=== PATIENT | male | born 2000 | race African-American/Black ===

== ENCOUNTER 2024-06-12 13:52 | Emergency (ER) | payer SELFPAY ==
[2024-06-12 14:04] VITALS: BP 133/82; PULSE 92; RESP 14; TEMP 36.8; O2SAT 97
--- NOTE | 2024-06-12 14:46 | ED_ITS ---
HPI - URI/Sore Throat General Chief Complaint: Upper Respiratory Infection Stated Complaint: runny nose Time Seen by Provider: 06/12/24 14:46 History of Present Illness HPI Narrative: 24 y/o male presented for c/o nasal congestion, sore throat, hoarse voice. Onset 4 days. Denies sob, wheezing, n/v/d/f/c. Not taking anything for symptoms. Related Data Home Medications ?Medication ?Instructions ?Recorded ?Confirmed ?Last Taken ?Type buspirone 10 mg tablet mg 06/12/24 Unknown History lurasidone 60 mg tablet mg 06/12/24 Unknown History sertraline 100 mg tablet mg 06/12/24 Unknown History Allergies Allergy/AdvReac Type Severity Reaction Status Date / Time No Known Allergies Allergy Verified 06/12/24 14:21 Review of Systems Review of Systems: CONSTITUTIONAL: Denies body aches, fever, chills, or sweats. EYES: Denies visual changes, redness, or discharge. ENT: reports rhinorrhea, congestion, sore throat CARDIOVASCULAR: Denies chest pain, palpitations, or edema. RESPIRATORY: Denies dyspnea. GASTROINTESTINAL: Denies abdominal pain, nausea, vomiting, or diarrhea. SKIN: Denies rash MUSCULOSKELETAL: Denies back pain, joint pain, or myalgia. NEUROLOGIC: Denies headache Exam Narrative: GENERAL: well-appearing, no acute distress. EYES: conjunctivae clear ENT: Mucous membranes moist. TM pearly baker with normal light reflex bilaterally; no tragal tenderness. Oropharynx mildly erythematous without lesions. Tonsils not enlarged and without exudate. No drooling, no hoarseness, no trismus, uvula midline. No tripod positioning, hot potato voice, or soft palate swelling. NECK: Supple. No lymphadenopathy CHEST: Clear to auscultation, breath sounds equal. No respiratory distress, speaks in full sentences. HEART: Regular rate and rhythm. No murmur heard. SKIN: Warm, dry, no rash. NEURO: Alert and oriented x3. Course Course Emergency Course: Patient is aware of diagnosis, understands and agrees to treatment plan. Anticipatory guidance given. Patient agrees to follow-up as directed and is aware of reasons to seek care at the emergency department. Portions of this record may have been created with voice recognition software Level of Care: Express Care Visit Vital Signs Vital signs: Vital Signs Temperature 98.2 F 06/12/24 14:04 Pulse Rate 92 06/12/24 14:04 Respiratory Rate 14 06/12/24 14:04 Blood Pressure 133/82 06/12/24 14:04 Pulse Oximetry 97 06/12/24 14:04 Oxygen Delivery Room Air 06/12/24 14:04 Temperature 98.2 F 06/12/24 14:04 Pulse Rate 92 06/12/24 14:04 Respiratory Rate 14 06/12/24 14:04 Blood Pressure 133/82 06/12/24 14:04 Pulse Oximetry 97 06/12/24 14:04 Oxygen Delivery Room Air 06/12/24 14:04 MDM - URI/Sore Throat MDM Narrative Medical decision making narrative: neg strep result reviewed with pt. Advise supportive treatments. Patient is appropriate for outpatient treatment and follow-up. Differential Diagnosis Differential diagnosis: Likely upper respiratory infection, viral infection and pharyngitis Discharge Plan Discharge Clinical Impression: Upper respiratory infection Patient Disposition: Home, Self-Care Condition: Stable Instructions: Antibiotic Form, Upper Respiratory Infection (ED) Additional Instructions: Rapid strep swab was negative today You will be notified in a few days if the culture comes back positive for strep, and appropriate antibiotics will be called in at that time. if symptoms are due to a viral illness, it is not treated with antibiotics. Viral symptoms can be present for up to 10-14 days. Recommendations: Flonase spray and Zyrtec for runny nose Cough syrup may cause drowsiness; avoid driving or take it at night time. Tylenol every 8 hours as needed for pain/fever Soft foods, cool liquids, warm tea. Gargle with warm saltwater twice a day. Chloraseptic spray and throat lozenges. Rest and stay hydrated. --Follow up with your PCP --Go to the ER immediately if you cannot swallow your saliva, trouble breathing/wheezing, throat swelling, pain is persistent and severe Patient Language: Bulgarian Prescriptions: No Action sertraline 100 mg tablet buspirone 10 mg tablet lurasidone 60 mg tablet Follow-up/Referrals: UNKNOWN,DOCTOR [Primary Care Provider] - Stand Alone Forms: Work/School Release IP Time of Disposition: 15:09
[2024-06-12 15:09] LABS: EDSTREPNEGPOS1 Negative (Negative)
--- OUTSIDE RECORDS SUMMARY | 2024-06-12 15:14 | XMS_ITS | Clinical Summary ---
Author Organization [facility] [address] Address [address] [place] [address] Phone Care Team Providers Care Linux Architect Name Role Phone Daniel Woodward MD Primary Care Provider [phone] Allergies Active Allergy Reactions Criticality Noted Date Comments Mold Unknown 06/08/2020 Medications Latuda 20 mg tablet 20 mg daily 05/07/2019 Active sertraline (ZOLOFT) 100 mg tablet Take 200 mg by mouth daily 05/14/2019 Active Active Problems Problem Noted Date Diagnosed Date Upper respiratory tract infection 12/08/2022 Assessment & Plan (12/08/2022 11:52 AM CDT): Rhinorrhea and sore throat x 2 days. Denies fever. Covid/flu/strep negative in- office today. No acute findings on exam today. Symptoms consistent with viral URI. Recommend symptomatic treatment at this time. Testicular mass 06/08/2020 Overview (06/08/2020): Added automatically from request for surgery [id number] Enlarged testicle 06/04/2020 Assessment & Plan (06/04/2020 11:09 AM CDT): Patient noticed enlarged testicle 4 days ago minimal discomfort. Patient is father advised that he will get an ultrasound of his testicles. once results returned I will refer to urology. Bilateral impacted cerumen 02/20/2020 Assessment & Plan (10/23/2020 7:14 PM CDT): Recurrence bilateral cerumen impaction successful removed today. Patient has used [id number] products this is not sufficient to clear to ear wax. Assessment & Plan (02/20/2020 2:22 PM BB SHOT PACKER): Ear wax removed both ears hearing improved immediately. Right acute serous otitis media 02/20/2020 Assessment & Plan (02/20/2020 2:22 PM BB SHOT PACKER): Cerumen impaction removed right ear red complained appearance pain consistent with otitis media patient started on Augmentin 875 twice a day 7 days. Anticipate full recovery no further treatment. Preventative health care 05/25/2019 Assessment & Plan (05/25/2019 5:40 PM CDT): 19-year-old gentleman here for preventive health exam is a new patient to me. His previous under care of Dr. 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 Patient has a diagnosis of attention deficit disorder he is under care of Psychiatry.. He takes the medication Latuda 20 mg daily and Zoloft/sertraline 100 mg 1/2 tablets daily. 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 Risk assessment reviewed health maintenance reviewed no new recommendations at this time who vaccine was not recommended by me on May 17, 2019. PHQ-9 score is taking care of through his psychiatrist. Medical examinations/reports status 06/05/2015 Overview (06/17/2016): Medical examinations/reports status Attention deficit disorder (ADD) without hyperac tivity 06/05/2015 Overview (06/17/2016): ADD Resolved Problems Problem Noted Date Diagnosed Date Resolved Date Other acute sinusitis 12/28/20162019 Otitis media 04/07/2016 05/25/2019 Overview (06/17/2016): Otitis media Acute streptococcal pharyngitis 04/07/2016 05/25/2019 Overview (06/17/2016): Streptococcal pharyngitis Bronchospasm 04/07/2016 05/25/2019 Overview (06/17/2016): Bronchospasm Infectious mononucleosis 06/05/2015 Overview (06/17/2016): Mononucleosis Immunizations Immunization Administration Dates Next Due DTaP 10/02/2003,12/07/2000,01/03/2000 DTaP / HiB / IPV 1999,1999 HPV, Quadrivalent 10/15/2013,05/10/2013,12/25/19 13 Hep B, Adolescent or Pediatric 10/18/2001,1999,01/03/2000 Hib (PRP-OMP) 10/18/2001,01/03/2000 IPV 10/02/2003,12/07/2000 Influenza, Quadrivalent, Spl it, Intramuscular 12/28/2016 Influenza, Quadrivalent, Spl it, Preservative Free, Intramuscular 12/23/2019 Influenza, Split 12/24/2012 Influenza, Trivalent, IM (MDV) 02/28/2014,2011 MMR 10/02/2003,12/07/2000 Meningococcal MCV4P (Menactra) 07/05/2010 Tdap 07/05/2010 Varicella 10/15/2013,12/07/2000 Surgical History Surgery Date Site/Laterality Comments ORAL SURGERY Medical History Medical History Date Comments Hx Other Medical 1999 8-8 [facility]; Comments: [facility] 06/05/2015 - Hx Other Medical 1999 [facility]; Comments: [facility] 06/05/2015 - Anxiety Depression Asperger's syndrome OCD (obsessive compulsive disorder) Family History Medical History Relation Name Comments Other Other 1 Family history of Asthma (Mother); Other Other 2 Family history of Allergy: Mold (Father); Other Other 3 Family history of Allergy: Chocolate (Father); Other Other 4 Family history of Allergy: Metal ; Psoriasis Other 5 Family history of Psoriasis; Other Other 6 Family history of Allergy: Milk; Hypertension Other 7 Family history of Hypertension; Other Other 8 Family history of ADHD; Relation Name Status Comments Other 1 Other 2 Other 3 Other 4 Other 5 Other 6 Other 7 Other 8 Social History Tobacco Use Types Packs/Day Years Used Date Smoking Tobacco: Never Alcohol Use Standard Drinks/Week Comments Never 0 (1 standard drink = 0.6 oz pur e alcohol) AUDIT-C Answer Date Recorded Q1: How often do you have a drink containing alc ohol? Never 06/08/2020 Average Number of Drinks Not on file 021 Frequency of Binge Drinking Not on file 05/12 Sex and Gender Information Value Date Recorded Sex Assigned at Not on file Legal Sex Male 9:45 AM BB SHOT PACKER Gender Identity Not on file Sexual Orientation Not on file Obstetrics History Last Filed Vital Signs Vital Sign Reading Time Taken Comments Blood Pressure 130/86 12/08/2022 11:09 AM CDT Pulse 108 12/08/2022 11:09 AM CDT Temperature 36.9 C (98.4 F) 12/08/2022 11:09 AM CDT Respiratory Rate 16 12/08/2022 11:09 AM CDT Oxygen Saturation 94% 12/08/2022 11:09 AM CDT Inhaled Oxygen Concentration - - Weight 77.1 kg (170 lb) 12/08/2022 11:09 AM CDT Height 175.3 cm (5' 9 ) 10/23/2020 11:10 AM CDT Body Mass Index 25.1 10/23/2020 11:10 AM CDT Plan of Treatment Health Maintenance Due Date Last Done Comments Depression Screening 1999 Hepatitis C Screening 1999 Regular Well Visit/Exam 18-64 05/16/2020 05/17/2019 DTaP/Tdap/Td Vaccine (7 - Td or Tdap) 07/05/2020 07/05/2010, 10/02/2003, 12/07/2000, Additional history exists Covid-19 Vaccine ( season) 2023 01/30/2023, 01/24/2022, 03/09/2021, Additional history exists Hepatitis B Screening Completed 10/18/2001 , 01/26/2000, 01/03/2000 HPV Vaccines Completed 10/15/2013, 04/14, 12/24/2012 Varicella Vaccines Completed 10/15/2013, 12/07/2000 Influenza Vaccine Completed 11/11/2023, , 01/24/2022, Additional history exists Pneumococcal vaccine <65 Aged Out No longer eligible based on patient's age to complete this topic Insurance [facility] Care Teams Linux Architect Relationship Specialty Start Date End Date Daniel Woodward MD PCP - General Internal Medicine 05/17/19
--- OUTSIDE RECORDS SUMMARY | 2024-06-12 15:14 | XMS_ITS ---
Author Organization [facility] [employer] Address [address] [place] [address] Care Team Providers Care General Passenger Agent Name Role Phone Daniel Woodward MD Primary Care Provider Lucita Sandy Unavailable [phone] Allergies Allergen (clinical drug ingredient) Drug/Non Drug Allergy documented on EMR Reaction Allergy Type Onset Date Status Mold Unknown Allergy 07/03/2023 Active REASON FOR VISIT Follow Up, stated he has not been doing too well, but after his visit today he is going to go home and play with his dog. Medications Medication SIG (Take, Route, Fr equency, Duration) Notes Start Date End Date Status busPIRone HCl 10 MG 1 tablet Oral Twice a day for 90 days Active Sertraline HCl 100 MG TAKE 2 TABLETS ORA L ONCE A DAY Orally Once a day for 90 days Ac tive Lurasidone HCl 60 MG 1 tablet in the siena jameson with food Oral Once a day for 90 days Active Social History Sex Assigned At : Social History Observation Description Sex Assigned At Male Section Notes: Family struggling financiall y at this time. Father is currently unemployed. Mother is working department mgr. 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 Z79.899 Assessments Encounter Date Diagnosis (ICD Code) Assessment Notes Treatment Notes Treatment Clinical Notes Section Notes 04/18/2024 Major depressive disorder, recurrent, moderate (ICD-10 - F33.1) Depression- Latuda 60 mg with evening meal - eat 350 calories with rx Sertraline 100 mg daily continue therapy plan to move [place] next year Anxiety- Buspar 10 mg twice a day Asperger's- therapy OCD Sertraline 100 mg daily http_s://psychTurningArt.com/depression /aut-rksnigwbr-xkc xkjfs-zh-njzxhdssa n#treatments http__s://www.nimh .nih.gov/health/to pics/mental-health -medications http__s://www.scotty .org/About-Mental- Illness/Treatments /Eeykfx-Eulfuy-Hme ications educated on all medications, benefits, side effects and risk, and educated on depression, anxiety, and ADHD, mood d/o and educated on compliance of medications, metabolic and movement d/o education appointment's, continue therapy discussion with patient about course of treatment and patient instructions. education on serotonin syndrome Discussed and educated pt regarding benzodiazepines are generally not intended for prolonged use and that use can cause tolerance, dependence, depression, and associated memory issues including dementias (this list is not exhaustive). Benzodiazepine use is generally not recommended concurrently with pain medications and/or other controlled substances educated on all medications, benefits, side effects and risk, and educated on depression, anxiety, and ADHD, mood d/o and educated on compliance of medications, metabolic and movement d/o education appointment is, continue therapy discussion with patient about course of treatment and patient instructions. education on serotonin syndrome SSRI/SNRI side effects discussed including but not limited to, gastric upset, nausea, vomiting, diarrhea and/or constipation, weight changes, sexual side effects including loss of libido, increased suicidal thoughts/behaviors in children and young adults, and serotonin syndrome. Patient educated on all medications including potential benefits, side effects, risks. Educated on proper dosing schedule and importance of compliance Second generation antipsychotics (SGAs) have metabolic syndrome issues with weight gain, increase in prolactin, increased waist circumference, increased lipids, and increased glucose. Thus routine monitoring of weight, metabolic labs, etc. is indicated. A general rank ordering of antipsychotics that have the greatest to the least risk of metabolic effects is olanzapine, quetiapine, risperidone, ziprasidone, and aripiprazole. However, weight gain can occur with all of these drugs and considerable variability exists among patients receiving the same drug regarding the risk of metabolic effects. Anti-psychotic agents not only increase the risk of metabolic disorder, they also increase the risk of CVA, akathisia, and movement disorders including EPS or tardive dyskinesia (more common with first generation antipsychotics) and more. Medication Management and Follow-Up - Plan: - Schedule follow-up appointments every 1-3 months to monitor the patient's response to the medication regimen. - Reinforce the importance of avoiding recreational drug use due to potential neurotoxicity and interactions with prescribed medications. 04/18/2024 Generalized anxiety disorder (ICD-10 - F41.1) Depression- Latuda 60 mg with evening meal - eat 350 calories with rx Sertraline 100 mg daily continue therapy plan to move [place] next year Anxiety- Buspar 10 mg twice a day Asperger's- therapy OCD Sertraline 100 mg daily http_s://psychcent CloudPhysics.com/depression /gma-vulqbsggm-osd jwsfp-pa-sjlzcomey n#treatments http__s://www.nimh .nih.gov/health/to pics/mental-health -medications http__s://www.scotty .org/About-Mental- Illness/Treatments /Ggbbxu-Znzcat-Gxi ications educated on all medications, benefits, side effects and risk, and educated on depression, anxiety, and ADHD, mood d/o and educated on compliance of medications, metabolic and movement d/o education appointment's, continue therapy discussion with patient about course of treatment and patient instructions. education on serotonin syndrome Discussed and educated pt regarding benzodiazepines are generally not intended for prolonged use and that use can cause tolerance, dependence, depression, and associated memory issues including dementias (this list is not exhaustive). Benzodiazepine use is generally not recommended concurrently with pain medications and/or other controlled substances educated on all medications, benefits, side effects and risk, and educated on depression, anxiety, and ADHD, mood d/o and educated on compliance of medications, metabolic and movement d/o education appointment is, continue therapy discussion with patient about course of treatment and patient instructions. education on serotonin syndrome SSRI/SNRI side effects discussed including but not limited to, gastric upset, nausea, vomiting, diarrhea and/or constipation, weight changes, sexual side effects including loss of libido, increased suicidal thoughts/behaviors in children and young adults, and serotonin syndrome. Patient educated on all medications including potential benefits, side effects, risks. Educated on proper dosing schedule and importance of compliance Second generation antipsychotics (SGAs) have metabolic syndrome issues with weight gain, increase in prolactin, increased waist circumference, increased lipids, and increased glucose. Thus routine monitoring of weight, metabolic labs, etc. is indicated. A general rank ordering of antipsychotics that have the greatest to the least risk of metabolic effects is olanzapine, quetiapine, risperidone, ziprasidone, and aripiprazole. However, weight gain can occur with all of these drugs and considerable variability exists among patients receiving the same drug regarding the risk of metabolic effects. Anti-psychotic agents not only increase the risk of metabolic disorder, they also increase the risk of CVA, akathisia, and movement disorders including EPS or tardive dyskinesia (more common with first generation antipsychotics) and more. Medication Management and Follow-Up - Plan: - Schedule follow-up appointments every 1-3 months to monitor the patient's response to the medication regimen. - Reinforce the importance of avoiding recreational drug use due to potential neurotoxicity and interactions with prescribed medications. 04/18/2024 Asperger's syndrome (ICD-10 - F84.5) Depression- Latuda 60 mg with evening meal - eat 350 calories with rx Sertraline 100 mg daily continue therapy plan to move [place] next year Anxiety- Buspar 10 mg twice a day Asperger's- therapy OCD Sertraline 100 mg daily http_s://psychcent CloudPhysics.com/depression /cme-csxxrqbml-gfk uskna-cd-avbftrasp n#treatments http__s://www.nim .nih.gov/health/to pics/mental-health -medications http__s://www.scotty .org/About-Mental- Illness/Treatments /Xneymi-Boqcjb-Ywm ications educated on all medications, benefits, side effects and risk, and educated on depression, anxiety, and ADHD, mood d/o and educated on compliance of medications, metabolic and movement d/o education appointment's, continue therapy discussion with patient about course of treatment and patient instructions. education on serotonin syndrome Discussed and educated pt regarding benzodiazepines are generally not intended for prolonged use and that use can cause tolerance, dependence, depression, and associated memory issues including dementias (this list is not exhaustive). Benzodiazepine use is generally not recommended concurrently with pain medications and/or other controlled substances educated on all medications, benefits, side effects and risk, and educated on depression, anxiety, and ADHD, mood d/o and educated on compliance of medications, metabolic and movement d/o education appointment is, continue therapy discussion with patient about course of treatment and patient instructions. education on serotonin syndrome SSRI/SNRI side effects discussed including but not limited to, gastric upset, nausea, vomiting, diarrhea and/or constipation, weight changes, sexual side effects including loss of libido, increased suicidal thoughts/behaviors in children and young adults, and serotonin syndrome. Patient educated on all medications including potential benefits, side effects, risks. Educated on proper dosing schedule and importance of compliance Second generation antipsychotics (SGAs) have metabolic syndrome issues with weight gain, increase in prolactin, increased waist circumference, increased lipids, and increased glucose. Thus routine monitoring of weight, metabolic labs, etc. is indicated. A general rank ordering of antipsychotics that have the greatest to the least risk of metabolic effects is olanzapine, quetiapine, risperidone, ziprasidone, and aripiprazole. However, weight gain can occur with all of these drugs and considerable variability exists among patients receiving the same drug regarding the risk of metabolic effects. Anti-psychotic agents not only increase the risk of metabolic disorder, they also increase the risk of CVA, akathisia, and movement disorders including EPS or tardive dyskinesia (more common with first generation antipsychotics) and more. Medication Management and Follow-Up - Plan: - Schedule follow-up appointments every 1-3 months to monitor the patient's response to the medication regimen. - Reinforce the importance of avoiding recreational drug use due to potential neurotoxicity and interactions with prescribed medications. 04/18/2024 Other obsessive-compu lsive disorder (ICD-10 - F42.8) Depression- Latuda 60 mg with evening meal - eat 350 calories with rx Sertraline 100 mg daily continue therapy plan to move [place] next year Anxiety- Buspar 10 mg twice a day Asperger's- therapy OCD Sertraline 100 mg daily http_s://[employer] Vit[employer].com/depression /jgv-awygzzsqy-ryw iaqkc-mw-pkdywaksv n#treatments http__s://www.[facility] .nih.gov/health/to pics/mental-health -medications http__s://www.scotty .org/About-Mental- Illness/Treatments /Ricgqb-Mlslzl-Dur ications educated on all medications, benefits, side effects and risk, and educated on depression, anxiety, and ADHD, mood d/o and educated on compliance of medications, metabolic and movement d/o education appointment's, continue therapy discussion with patient about course of treatment and patient instructions. education on serotonin syndrome Discussed and educated pt regarding benzodiazepines are generally not intended for prolonged use and that use can cause tolerance, dependence, depression, and associated memory issues including dementias (this list is not exhaustive). Benzodiazepine use is generally not recommended concurrently with pain medications and/or other controlled substances educated on all medications, benefits, side effects and risk, and educated on depression, anxiety, and ADHD, mood d/o and educated on compliance of medications, metabolic and movement d/o education appointment is, continue therapy discussion with patient about course of treatment and patient instructions. education on serotonin syndrome SSRI/SNRI side effects discussed including but not limited to, gastric upset, nausea, vomiting, diarrhea and/or constipation, weight changes, sexual side effects including loss of libido, increased suicidal thoughts/behaviors in children and young adults, and serotonin syndrome. Patient educated on all medications including potential benefits, side effects, risks. Educated on proper dosing schedule and importance of compliance Second generation antipsychotics (SGAs) have metabolic syndrome issues with weight gain, increase in prolactin, increased waist circumference, increased lipids, and increased glucose. Thus routine monitoring of weight, metabolic labs, etc. is indicated. A general rank ordering of antipsychotics that have the greatest to the least risk of metabolic effects is olanzapine, quetiapine, risperidone, ziprasidone, and aripiprazole. However, weight gain can occur with all of these drugs and considerable variability exists among patients receiving the same drug regarding the risk of metabolic effects. Anti-psychotic agents not only increase the risk of metabolic disorder, they also increase the risk of CVA, akathisia, and movement disorders including EPS or tardive dyskinesia (more common with first generation antipsychotics) and more. Medication Management and Follow-Up - Plan: - Schedule follow-up appointments every 1-3 months to monitor the patient's response to the medication regimen. - Reinforce the importance of avoiding recreational drug use due to potential neurotoxicity and interactions with prescribed medications. 04/18/2024 Other alf (current) drug therapy (ICD-10 - Z79.899) Depression- Latuda 60 mg with evening meal - eat 350 calories with rx Sertraline 100 mg daily continue therapy plan to move [place] next year Anxiety- Buspar 10 mg twice a day Asperger's- therapy OCD Sertraline 100 mg daily http_s://[employer].com/depression /wnw-wiofyxmsw-szg jvvrp-ni-pxrujvwuj n#treatments http__s://www.nimh .nih.gov/health/to pics/mental-health -medications http__s://www.sctoty .org/About-Mental- Illness/Treatments /Hisbye-Bgtocn-Yqt ications educated on all medications, benefits, side effects and risk, and educated on depression, anxiety, and ADHD, mood d/o and educated on compliance of medications, metabolic and movement d/o education appointment's, continue therapy discussion with patient about course of treatment and patient instructions. education on serotonin syndrome Discussed and educated pt regarding benzodiazepines are generally not intended for prolonged use and that use can cause tolerance, dependence, depression, and associated memory issues including dementias (this list is not exhaustive). Benzodiazepine use is generally not recommended concurrently with pain medications and/or other controlled substances educated on all medications, benefits, side effects and risk, and educated on depression, anxiety, and ADHD, mood d/o and educated on compliance of medications, metabolic and movement d/o education appointment is, continue therapy discussion with patient about course of treatment and patient instructions. education on serotonin syndrome SSRI/SNRI side effects discussed including but not limited to, gastric upset, nausea, vomiting, diarrhea and/or constipation, weight changes, sexual side effects including loss of libido, increased suicidal thoughts/behaviors in children and young adults, and serotonin syndrome. Patient educated on all medications including potential benefits, side effects, risks. Educated on proper dosing schedule and importance of compliance Second generation antipsychotics (SGAs) have metabolic syndrome issues with weight gain, increase in prolactin, increased waist circumference, increased lipids, and increased glucose. Thus routine monitoring of weight, metabolic labs, etc. is indicated. A general rank ordering of antipsychotics that have the greatest to the least risk of metabolic effects is olanzapine, quetiapine, risperidone, ziprasidone, and aripiprazole. However, weight gain can occur with all of these drugs and considerable variability exists among patients receiving the same drug regarding the risk of metabolic effects. Anti-psychotic agents not only increase the risk of metabolic disorder, they also increase the risk of CVA, akathisia, and movement disorders including EPS or tardive dyskinesia (more common with first generation antipsychotics) and more. Medication Management and Follow-Up - Plan: - Schedule follow-up appointments every 1-3 months to monitor the patient's response to the medication regimen. - Reinforce the importance of avoiding recreational drug use due to potential neurotoxicity and interactions with prescribed medications. Plan Of Treatment Medication Medication Name Sig Start Date Stop Date Notes busPIRone HCl 10 MG 1 tablet Oral Twice a day for 90 days Sertraline HCl 100 MG TAKE 2 TABLETS ORA L ONCE A DAY Orally Once a day for 90 days Lurasidone HCl 60 MG 1 tablet in the siena jameson with food Oral Once a day for 90 days Next Appt Details Follow Up: 3 Months, Reason: f/u rx and schedule with Madeleine Provider Name:Lucita Stewart , 07/11/2024 02:15:00 PM, [facility] [address], [facility] [address], [place], [address], Progress Notes * CARLOS YEPEZ ADOB: [birth year] (23 yo M)Acc No.[id number]:04/18/2024 Patient: Maria Eugenia CARLOS CUBA Provider: STEVO DUPREEHNP :2000 A ge:23 Y S ex:Male Date:04/18/2024 Address:[address] [place], [place] [id number] Pcp:Daniel Woodward MD Subjective: * Chief Complaints: * 1 . Follow Up, stated he has not been doing too well, but after his visit today he is going to go home and play with his dog.. * HPI: D epression Screening: HERMANN-7 (2018 Edition) F eeling nervous, anxious, or on edge?Several days, N ot being able to stop or control worrying S everal days, W orrying too much about different things M ore than hafl the days, T rouble relaxing M ore than half the days, B eing so restless that it is hard to sit still N ot at all, B ecoming easily annoyed or irritable N ot at all, F eeling afraid as if something awful might happen More than half the days, T otal HERMANN-7 Score 8 , I nterpretation of Total ( 5 to 9) Mild. 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, and my dog is free of fleas so are cats and I walk dog and fun in back yard with ball, I feel like I lost michael with humanity recently and helpless, and unable to do anything, make me feel afraid what will happen in the world, sleep awake longer into night sleep average 10 -11pm- and sleep 8-9 hours, appetite too much and not enough veg, t olerating all rx, no s/e and no abnormal involuntary movement reported or noted, I get bottle water daily, I feel like sometimes irritable and in general I am not or anger, no psychosis no shane, no SI/HI, energy fine just can not decided what to do with it I am takign all rx ETOH- denies smoking- denies labs- none drugs- denies presently taking LATUDA 60 mg with evenng meal, Sertraline 100 mg daily, Buspar 10 mg twice a day rx hx LATUDA, Sertraline Buspar. D epression screening: PHQ-9 L ittle interest or pleasure in doing things M ore than half the days, F eeling down, depressed, or hopeless M ore than half the days, T rouble falling or staying asleep, or sleeping too much S everal days, F eeling tired or having little energy S everal days, P oor appetite or overeating M ore than half the days,?Feeling bad about yourself or that you are a failure, or have let yourself or your family down Not at all, T rouble concentrating on things, such as reading the newspaper or watching television N ot at all, M oving or speaking so slowly that other people could have noticed; or the opposite, being so fidgety or restless that you have been moving around a lot more than usual?Not at all, T houghts that you would be better off or of hurting yourself in some way Not at all, T otal Score 8 , I nterpretation M ild Depression. I ntervention?Depression Screening Findings P ositve, F ollow-Up for Depression M ental health treatment assessment, Patient follow-up to return when and if necessary, S uicide Risk Assessment Performed , A dditional Evaluation for Depression P sychiatric interview and evaluation, N anabelle of the standardized tool used for adult depression screening: [facility] Questionnaire (PHQ-9). * ROS: P erformance Met: N ormal blood pressure reading documented, follow-up not required ( [id number]) reports reports no chest pain, no shortness of breath no palpitations, no known heart murmur, and no ankle swelling; no cough. r eports no abdominal pain, no nausea, no vomiting, no constipation, normal appetite, no diarrhea, and no GERD; . r eports no headaches and no migraines but reports no loss of consciousness, no weakness, no numbness, no seizures, no dizziness, no tremor, no gait dysfunction, and no paralysis. r eports no sleep disturbances no restless sleep, and mild depression, feeling safe in a relationship, no alcohol abuse, mild anxiety, no hallucinations, no suicidal thoughts, no mood swings, no agitation, r eports f atigue. reports no fever, no significant weight gain, and no significant weight loss. r eports wears glasses reports no incontinence, no difficulty urinating, no hematuria, and no increased frequency. r eports no muscle aches, no muscle weakness, no arthralgias/joint pain, no back pain, no swelling in the extremities, no neck pain, and no difficulty walking. * Medical History: P roblems: Asperger's disorder, Generalized anxiety disorder, Long-term drug therapy, Moderate recurrent major depression, Obsessive-compulsive disorder, ,. * Social History: M igrated Social History: M igrated Social History: Alcohol Intake: None 04/21/2022,Tobacco Years: Never smoker 10/19/2021. D rug/Alcohol: D o you smoke marijuana?: Denies. Do you drink alcohol?: No. F amily struggling financially at this time. Father is currently unemployed. Mother is working p art time. 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 * Medications: T aking Lurasidone HCl 60 MG Tablet 1 tablet in the evening with food Oral Once a day , Taking Sertraline HCl 100 MG Tablet TAKE 2 TABLETS ORAL ONCE A DAY Orally Once a day , Taking busPIRone HCl 10 MG Tablet 1 tablet Oral Twice a day , Medication List reviewed and reconciled with the patient * Allergies: M old: Allergy - Onset Date 07/03/2023. Objective: * Vitals: B P:125/87mm Hg, HR:80/min, Wt:178.6lbs, Wt-k.01 kg, Ht: 68.00 in, Ht-cm: 172.72 cm, BMI:27.15Index, Body Surface Area: 1.97. * Examination: P sychiatry: Appearance: a ppears stated age, with episodes of inattentiveness, Dx on autism spectrum,, well-nourished, well-groomed. Abnormal body movements: n one. Affect / mood: a ppropriate, full range. Aggression: l ow. Anger control: g ood. I get frustrated but I am not an angry person. . Attention: f air. Attitude: c ooperative, . Homicidal ideation: n one. Suicidal ideation: n one. Memory status: d id not assess. Degree of awareness of surroundings: w ithin normal limits.? Delusions: n o. Hallucinations: n o. Impulse control: g ood, self report. Insight: f air. Judgement: todd comer. Has been unable to work in a job without accommodations.. Orientation: a wake, alert and oriented x 3. Psychomotor activity: w ithin normal range. Speech / language: a ppropriate pitch/modulation, normal rate, volume, and articulation (RVR), proper grammar used. Thought content: a ppropriate. Thought process: i ntact. Assessment: * Assessment: 1. M ajor depressive disorder, recurrent, moderate - F33.1 (Primary) 2 . G eneralized anxiety disorder - F41.1 3 . A sperger's syndrome - F84.5 ?4. O ther obsessive-compulsive disorder - F42.8 5 . O ther alf (current) drug therapy - Z79.899 Depression- Latuda 60 mg with evening meal - eat 350 calories with rx Sertraline 100 mg daily continue therapy plan to move [place] next year Anxiety- Buspar 10 mg twice a day Asperger's- therapy OCD Sertraline 100 mg daily http_s://psychcentral.com/depression/csj-lhmezinpu-wyovhpju-of-depression#treatm ents http__s://www.nimh.nih.gov/health/topics/fblwya-soxaxy-ybfefoubqsi http__s://www.scotty.org/Fhsti-Wwspbp-Xsdesyt/Treatments/Exesaz-Dlvcqm-Ouoplvdmquj educated on all medications, benefits, side effects and risk, and educated on depression, anxiety, and ADHD, mood d/o and educated on compliance of medications, metabolic and movement d/o education appointment's, continue therapy discussion with patient about course of treatment and patient instructions. education on serotonin syndrome Discussed and educated pt regarding benzodiazepines are generally not intended for prolonged use and that use can cause tolerance, dependence, depression, and associated memory issues including dementias (this list is not exhaustive). Benzodiazepine use is generally not recommended concurrently with pain medications and/or other controlled substances educated on all medications, benefits, side effects and risk, and educated on depression, anxiety, and ADHD, mood d/o and educated on compliance of medications, metabolic and movement d/o education appointment is, continue therapy discussion with patient about course of treatment and patient instructions. education on serotonin syndrome SSRI/SNRI side effects discussed including but not limited to, gastric upset, nausea, vomiting, diarrhea and/or constipation, weight changes, sexual side effects including loss of libido, increased suicidal thoughts/behaviors in children and young adults, and serotonin syndrome. Patient educated on all medications including potential benefits, side effects, risks. Educated on proper dosing schedule and importance of compliance Second generation antipsychotics (SGAs) have metabolic syndrome issues with weight gain, increase in prolactin, increased waist circumference, increased lipids, and increased glucose. Thus routine monitoring of weight, metabolic labs, etc. is indicated. A general rank ordering of antipsychotics that have the greatest to the least risk of metabolic effects is olanzapine, quetiapine, risperidone, ziprasidone, and aripiprazole. However, weight gain can occur with all of these drugs and considerable variability exists among patients receiving the same drug regarding the risk of metabolic effects. Anti-psychotic agents not only increase the risk of metabolic disorder, they also increase the risk of CVA, akathisia, and movement disorders including EPS or tardive dyskinesia (more common with first generation antipsychotics) and more. Medication Management and Follow-Up - Plan: - Schedule follow-up appointments every 1-3 months to monitor the patient's response to the medication regimen. - Reinforce the importance of avoiding recreational drug use due to potential neurotoxicity and interactions with prescribed medications. Plan: * Treatment: 2. G eneralized anxiety disorder Refill busPIRone HCl Tablet, 10 MG, 1 tablet, Oral, Twice a day, 90 days, 180, Refills 1. ? * Procedure Codes: G 8783 NORMAL BP READING DOC F/U NOT RQR, 30561 BEHAV ASSMT W/SCORE & DOCD/STAND INSTRUMENT, 16318 BEHAV ASSMT W/SCORE & DOCD/STAND INSTRUMENT, G2211 VISIT COMPLEXITY INHERENT TO ONGOING CARE RELATED TO A PATIENT'S SINGLE, SERIOUS CONDITION OR A COMPLEX CONDITION * Follow Up: 3 Months (Reason: f/u rx and schedule with Madeleine) * Billing Information: * Visit Code: * Procedure Codes: G8783 NORMAL BP READING DOC F/U NOT RQR. 94978 BEHAV ASSMT W/SCORE & DOCD/STAND INSTRUMENT. 84464 BEHAV ASSMT W/SCORE & DOCD/STAND INSTRUMENT. G2211 VISIT COMPLEXITY INHERENT TO ONGOING CARE RELATED TO A PATIENT'S SINGLE, SERIOUS CONDITION OR A COMPLEX CONDITION. * ATIONAL RISK ANALYST Sign off status: Completed true * Provider: HILDA DUPREE Date: 0 04/18/2024 Generated for Diana hammond/Dana/Dmitry on: 0 06/12/2024 03:14 PM CDT History and Physical Notes * HPI (History of Present Illness) Category Sub-Category Detail Notes Category Not es Depression screening PHQ-9 Little inte rest or pleasure in doing things: More than half the days Feeling down, depressed, or hopeless: Mo re than half the days Trouble falling or staying asleep, or sl eeping too much: Several days Feeling tired or having little energy: S everal days Poor appetite or overeating: More than h group home the days Feeling bad about yourself o r that you are a failure, or have let yourself or your family down: Not at all Trouble concentrating on thi ngs, such as reading the newspaper or watching television: Not at all Moving or speaking so slowly that other people could have noticed; or the opposite, being so fidgety or restless that you have been moving around a lot more than usual: Not at all Thoughts that you would be b tristin off or of hurting yourself in some way: Not at all Total Score: 8 Interpretation: Mild Depression Intervention Depression Screening Findings: P ositve Follow-Up for Depression: [facility] treatment assessment, Patient follow-up to return when and if necessary Suicide Risk Assessment Performed: Additional Evaluation for De pression: Psychiatric interview and evaluation Name of the standardized too l used for adult depression screening:: Patient Health Questionnaire (PHQ-9) Depression Screening HERMANN-7 (2018 Edition) Feeling nervous, anxious, or on edge: Several days Follow up depression, anxiety, OCD, chronic since last visit reported I been feeling not so good and I think some time in future may lose disability aid and lay heavy on me, I think [place] cutting all welfare programs does not beleive in mental disability exist, dad still working in [place] I get to see him tomorrow and go on nature walks this weekend, not moving yet, until next year, job is going and very nice I like it, it is positive for me and I am still worried how to advance from PT to FT job, and my dog is free of fleas so are cats and I walk dog and fun in back yard with ball, I feel like I lost michael with humanity recently and helpless, and unable to do anything, make me feel afraid what will happen in the world, sleep awake longer into night sleep average 10 -11pm- and sleep 8-9 hours, appetite too much and not enough veg, tolerating all rx, no s/e and no abnormal involuntary movement reported or noted, I get bottle water daily, I feel like sometimes irritable and in general I am not or anger, no psychosis no shane, no SI/HI, energy fine just can not decided what to do with it I am takign all rx ETOH- denies smoking- denies labs- none drugs- denies presently taking LATUDA 60 mg with evenng meal, Sertraline 100 mg daily, Buspar 10 mg twice a day rx hx LATUDA, Sertraline Buspar Not being able to stop or control worryi ng: Several days Worrying too much about different things : More than hafl the days Trouble relaxing: More than half the day s Being so restless that it is hard to sit still: Not at all Becoming easily annoyed or irritable: No t at all Feeling afraid as if something awful thea ht happen: More than half the days Total HERMANN-7 Score: 8 Interpretation of Total: (5 to 9) Mild Examination Category Sub-Category Detail Notes Category Not es Psychiatry Appearance: appears stated a ge, with episodes of inattentiveness, Dx on autism spectrum,, well-nourished, well-groomed Attitude: cooperative, Psychomotor activity: within normal rang e Abnormal body movements: none Attention: fair Degree of awareness of surroundings: wit hin normal limits Orientation: awake, alert and lake ented x 3 Affect / mood: appropriate, full ra nge Speech / language: appropriate pitch/mo dulation, normal rate, volume, and articulation (RVR), proper grammar used Insight: fair Judgement: fair. Has been unabl e to work in a job without accommodations. Thought process: intact Thought content: appropriate Aggression: low Anger control: good. I get frustra raymundo but I am not an angry person. Suicidal ideation: none Homicidal ideation: none Impulse control: good, self report Memory status: did not assess Delusions: no Hallucinations: no
--- OUTSIDE RECORDS SUMMARY | 2024-06-12 15:15 | XMS_ITS ---
Author Organization [facility] [employer] [facility] Address [address] [facility] [address] [place] [address] Care Team Providers Care Radio Tower Technician Name Role Phone Daniel Woodward MD Primary Care Provider Lucita Sandy Unavailable [phone] Madeleine Davis [phone] Social History Sex Assigned At : Social History Observation Description Sex Assigned At Male Encounters Encounter Location Date Provider Diagnosis [facility] [employer] [facility] [address] [place] [address] 09/12/2023 Madeleine Pal Plan Of Treatment Next Appt Details Provider Name:Lucita Oharavirginia , 07/11/2024 02:15:00 PM, [address], [address], [place], [address], Progress Notes * CARLOS YEPEZ ADOB: [birth year] (24 yo M)Acc No.[id number]:09/12/2023 Patient: JIMMIE SHEIKHSILVIA Davidson Provider: Lilliana PAL LCSW :2000 A ge:23 Y S ex:Male Date:09/12/2023 Address:[address] Pcp:Daniel Woodward MD Data: * Chief Complaints: * Assessment: Plan: * Treatment: * Billing Information: * Visit Code: * Procedure Codes: * Electronic signature of Anna Pal LCSW on 06/12/2024 at 03:15 PM CDT Sign off status: Pending Signatures: No Ad Hoc Signature Added * Provider: Lilliana PAL LCSW Date: 0 09/12/2023 Generated for Diana hammond/Abiola on: 0 06/12/2024 03:15 PM CDT
--- OUTSIDE RECORDS SUMMARY | 2024-06-12 15:15 | XMS_ITS ---
Author Organization [facility] Address [address] [place] [address] Care Team Providers Care Corset Maker Name Role Phone Daniel Woodward MD Primary Care Provider Lucita Sandy Unavailable [phone] Allergies Allergen (clinical drug ingredient) Drug/Non Drug Allergy documented on EMR Reaction Allergy Type Onset Date Status Mold Unknown Allergy 07/03/2023 Active REASON FOR VISIT f/u rx Medications Medication SIG (Take, Route, Fr equency, Duration) Notes Start Date End Date Status Lurasidone HCl 60 MG 1 tablet in the siena jameson with food Oral Once a day for 90 days Active Sertraline HCl 100 MG TAKE 2 TABLETS ORA L ONCE A DAY Orally Once a day for 90 days Ac tive busPIRone HCl 10 MG 1 tablet Oral Twice a day for 90 days Active Social History Sex Assigned At : Social History Observation Description Sex Assigned At Male Section Notes: Family struggling financiall y at this time. Father is currently unemployed. Mother is working [employer]. 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 Problems Problem Type SNOMED Code ICD Code Onset Dates Problem Status W/U Status Risk Notes Problem Long-term current use of drug therapy (707930643) Other terminologist (current) drug therapy (Z79.899) 03/23/2023 Active confirmed Vital Signs Blood pressure systolic 135 mm Hg 12/21/19 24 Blood pressure diastolic 78 mm Hg 024 Heart Rate 79 /min 12/21/2023 Height 68.00 in 12/21/2023 Weight 172.8 lbs 12/21/2023 BMI 26.27 kg/m2 12/21/2023 Height-cm 172.72 cm 12/21/2023 Weight-kg 78.38 kg 12/21/2023 Encounters Encounter Location Date Provider Diagnosis [facility] Equivalent DATA [facility] [address] [place] [address] 12/21/2023 Lucita Stewart Major depressive disorder, recurrent, moderate F33.1 ; Generalized anxiety disorder F41.1 ; Asperger's syndrome F84.5 ; Other obsessive-compulsive disorder F42.8 and Other terminologist (current) drug therapy Z79.899 Assessments Encounter Date Diagnosis (ICD Code) Assessment Notes Treatment Notes Treatment Clinical Notes Section Notes 12/21/2023 Major depressive disorder, recurrent, moderate (ICD-10 - F33.1) Depression- Latuda 60 mg with evening meal - eat 350 calories with rx Sertraline 100 mg daily continue therapy plan to move [facility] Anxiety- Buspar 10 mg twice a day Asperger's- therapy OCD Sertraline 100 mg daily http_s://psychcent Browntape.com/depression /qkd-sfqmxpqfb-vsz rgtex-wm-iutvjvsgf n#treatments http__s://www.nimh .nih.gov/health/to pics/mental-health -medications http__s://www.scotty .org/About-Mental- Illness/Treatments /Abfain-Rwtnif-Gxx ications educated on all medications, benefits, side [...] potential neurotoxicity and interactions with prescribed medications. 12/21/2023 Generalized anxiety disorder (ICD-10 - F41.1) Depression- Latuda 60 mg with evening meal - eat 350 calories with rx Sertraline 100 mg daily continue therapy plan to move [facility] Anxiety- Buspar 10 mg twice a day Asperger's- therapy OCD Sertraline 100 mg daily http_s://psychcent [employer]ta[employer].com/depression /hut-ikhwvkxqr-yxj xbslr-pa-lzcbyerud n#treatments http__s://www.nimh .nih.gov/health/to pics/mental-health -medications http__s://www.scotty .org/About-Mental- Illness/Treatments /Noenwz-Wjmxqf-Rjz ications educated on all medications, benefits, side [...] potential neurotoxicity and interactions with prescribed medications. 12/21/2023 Asperger's syndrome (ICD-10 - F84.5) Depression- Latuda 60 mg with evening meal - eat 350 calories with rx Sertraline 100 mg daily continue therapy plan to move [place] [facility] Anxiety- Buspar 10 mg twice a day Asperger's- therapy OCD Sertraline 100 mg daily http_s://psychcent Browntape.com/depression /xrj-fzrbvbgtb-lvn rzshw-hq-doifdxlti n#treatments http__s://www.[facility] .nih.gov/health/to pics/mental-health -medications http__s://www.scotty .org/About-Mental- Illness/Treatments /Lsefin-Ekljmv-Xms ications educated on all medications, benefits, side [...] potential neurotoxicity and interactions with prescribed medications. 12/21/2023 Other obsessive-compu lsive disorder (ICD-10 - F42.8) Depression- Latuda 60 mg with evening meal - eat 350 calories with rx Sertraline 100 mg daily continue therapy plan to move [place] end year Anxiety- Buspar 10 mg twice a day Asperger's- therapy OCD Sertraline 100 mg daily http_s://psychcent Browntape.com/depression /knd-wguasmrpq-waq pnvdu-wh-kxximloza n#treatments http__s://www.nim .nih.gov/health/to pics/mental-health -medications http__s://www.scotty .org/About-Mental- Illness/Treatments /Rhyekx-Izppno-Vby ications educated on all medications, benefits, side [...] potential neurotoxicity and interactions with prescribed medications. 12/21/2023 Other skilled nursing (current) drug therapy (ICD-10 - Z79.899) Depression- Latuda 60 mg with evening meal - eat 350 calories with rx Sertraline 100 mg daily continue therapy plan to move [facility] year Anxiety- Buspar 10 mg twice a day Asperger's- therapy OCD Sertraline 100 mg daily http_s://[facility].com/depression /rom-ysuqyrnau-asy wodoz-rh-yeqmwbqui n#treatments http__s://www.nimh .nih.gov/health/to pics/mental-health -medications http__s://www.scotty .org/About-Mental- Illness/Treatments /Pziagr-Tycecu-Kwq ications educated on all medications, benefits, side [...] Name Sig Start Date Stop Date Notes Lurasidone HCl 60 MG 1 tablet in the siena jameson with food Oral Once a day for 90 days Sertraline HCl 100 MG TAKE 2 TABLETS ORA L ONCE A DAY Orally Once a day for 90 days busPIRone HCl 10 MG 1 tablet Oral Twice a day for 90 days Next Appt Details Follow Up: 4 Months, Reason: f/u rx Provider Name:Lucita Stewart , 07/11/2024 02:15:00 PM, [address], [facility] [address], [place], [address], Progress Notes * CARLOS YEPEZ ADOB: [birth year] (23 yo M)Acc No.[id number]:12/21/2023 Patient: Maria Eugenia CARLOS CUBA Provider: STEVO DUPREEHNP :2000 A ge:23 Y S ex:Male Date:12/21/2023 Address:[address] [facility] Pcp:Daniel Woodward MD Subjective: * Chief Complaints: * 1 . F/u rx. * HPI: D epression Screening: HERMANN-7 (2018 Edition) F eeling nervous, anxious, or on edge?Not at all, N ot being able to stop or control worrying S everal days, W orrying too much about different things N ot at all, T rouble relaxing N ot at all, B eing so restless that it is hard to sit still N ot at all, B ecoming easily annoyed or irritable?More than half the days, F eeling afraid as if something awful might happen M ore than half the days, T otal HERMANN-7 Score 5 , I nterpretation of Total ( 5 to 9) Mild. 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, I feel depression not having and also not as bad as before and not also better if make sense I am in therapy, I stopped for a while with computer log in system issues, I feel not sad or down, I do feel hopeless about some things that come up then go away and I have no control over, I am not anxious or restlss and sometimes regret not stick to schedule I have in head and if I write it down I will be able to more clearly, I want to excise before bed so I do not have a belly like dad and to stay healthy but too tired by bed time and I fall asleep I average 8 hours sleep and appetite good, I been trying not to go to [employer] after work and bad for me and expensive, no psychosis no shane, no SI/HI, reported energy is better than usual, and motivation and interest I get self to to go to work and not beg for extra s sleep and I take dog out after work and bed until dinner, and focus been on simple task not complex task, I can wsh trays at work but not type on computer without distracted, tolerating all rx, no s/e and no abnormal involuntary movement reported or noted, sometimes I get mad over simple things and sometimes mad for days. I feel like if not born with all these learning disorder I could have been more than I am but know it is useless ETOH- denies smoking- denies labs- none drugs- denies presently taking LATUDA 60 mg with evenng meal, Sertraline 100 mg daily, Buspar 10 mg twice a day rx hx LATUDA, Sertraline Buspar. D epression screening: PHQ-9 L ittle interest or pleasure in doing things M ore than half the days, F eeling down, depressed, or hopeless N ot at all, T rouble falling or staying asleep, or sleeping too much N ot at all, F eeling tired or having little energy N ot at all, P oor appetite or overeating N ot at all, F eeling bad about yourself or that you are a failure, or have let yourself or your family down M ore than half the days, Trouble concentrating on things, such as reading the newspaper or watching television N ot at all, M oving or speaking so slowly that other people could have noticed; or the opposite, being so fidgety or restless that you have been moving around a lot more than usual N early every day, T houghts that you would be better off or of hurting yourself in some way N ot at all, T otal Score 7 , I nterpretation M ild Depression. I ntervention D epression Screening Findings P ositve, F ollow-Up for Depression E motional support education, Management of mental health treatment, S uicide Risk Assessment Performed , Additional Evaluation for Depression P sychiatric interview and evaluation, N anabelle of the standardized tool used for adult depression screening: P atient Health Questionnaire (PHQ-9).? * ROS: r eports n o shortness of breath when walking but reports no chest pain, no arm pain on exertion, no shortness of breath when lying down, no palpitations, no known heart murmur, and [...] Intake: None 04/21/2022,Tobacco Years: Never smoker 10/19/2021. F amily struggling financially at this time. Father is currently unemployed. Mother is working p art time. 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 * Medications: T aking Lurasidone HCl 60 MG Tablet 1 tablet in the evening with food Oral Once a day appointment needed, Notes to Pharmacist: appointment needed, Taking busPIRone HCl 10 MG Tablet 1 tablet Oral Twice a day appointment needed for refill, Notes to Pharmacist: appointment needed, Taking Sertraline HCl 100 MG Tablet TAKE 2 TABLETS ORAL ONCE A DAY APPOINTMENT NEEDED FOR REFILLS PLEASE CALL OFFICE FOR 7 DAYS , Medication List reviewed and reconciled with the patient * Allergies: M old: Allergy - Onset Date 07/03/2023. Objective: * Vitals: B P:135/78mm Hg, HR:79/min, Wt:172.8lbs, Wt-k.38 kg, Ht: 68.00 in, Ht-cm: 172.72 cm, BMI:26.27Index, Body Surface Area: 1.94. * Examination: P sychiatry: Appearance: a ppears [...] ood, self report. Insight: f air. Judgement: f air. Has been unable to work in a [...] disorder - F42.8 5 . O ther terminologist (current) drug therapy - Z79.899 Depression- Latuda 60 mg with evening meal - eat 350 calories with rx Sertraline 100 mg daily continue therapy plan to move [facility] year Anxiety- Buspar 10 mg twice a day Asperger's- therapy OCD Sertraline 100 mg daily http_s://psychcentral.com/depression/gky-ksgnrtpyy-xnlkjxjy-of-depression#treatm ents http__s://www.nimh.nih.gov/health/topics/kgczwt-lpnfth-mjqugskmqne http__s://www.scotty.org/Scrwp-Lunhvv-Ffdqhun/Treatments/Jartyp-Fampib-Jbnlukfpvov educated on all medications, benefits, side effects [...] 180, Refills 1. ? * Procedure Codes: 9 6127 BEHAV ASSMT W/SCORE & DOCD/STAND INSTRUMENT, 69987 BEHAV ASSMT W/SCORE & DOCD/STAND INSTRUMENT, G2211 VISIT COMPLEXITY INHERENT TO ONGOING CARE RELATED TO A PATIENT'S SINGLE, SERIOUS CONDITION OR A COMPLEX CONDITION * Preventive Medicine: Counseling: B P Management: P RE-HYPERTENSIVE FOLLOW-UP PLAN: F ollow-up 2 weeks educated on healthy b/p 120/80monitor b/p at homerefer to PCP, Urgent care/ERheart healthy diet and exciselimit salt intakelimit soda intake and caffieneincrease water, L IFESTYLE RECOMMENDATION: L ifestyle education, R EFERRAL TO ALTERNATIVE / PRIMARY CARE PROVIDER: R eferral to general physician . * Follow Up: 4 Months (Reason: f/u rx) * Billing Information: * Visit Code: 38218 OFFICE OUTPATIENT VISIT 25 MINUTES DETAILED HISTORY AND EXAM/MODERATE MEDICAL DECISION MAKING. * Procedure Codes: 96881 BEHAV ASSMT W/SCORE & DOCD/STAND INSTRUMENT. 36346 BEHAV ASSMT W/SCORE & DOCD/STAND INSTRUMENT. G2211 VISIT COMPLEXITY INHERENT TO ONGOING CARE RELATED TO A PATIENT'S SINGLE, SERIOUS CONDITION OR A COMPLEX CONDITION. * Sign off status: Completed true * Provider: HILDA DUPREE Date: 1 Generated for Diana hammodn/Dnaa/Sukumaritting on: 0 06/12/2024 03:14 PM CDT History and Physical Notes * HPI (History of Present Illness) Category Sub-Category Detail Notes Category Not es Depression screening PHQ-9 Little inte rest or pleasure in doing things: More than half the days Feeling down, depressed, or hopeless: No t at all Trouble falling or staying asleep, or sl eeping too much: Not at all Feeling tired or having little energy: N ot at all Poor appetite or overeating: Not at all Feeling bad about yourself o r that you are a failure, or have let yourself or your family down: More than half the days Trouble concentrating on thi ngs, such as reading the newspaper or watching television: Not at all Moving or speaking so slowly that other people could have noticed; or the opposite, being so fidgety or restless that you have been moving around a lot more than usual: Nearly every day Thoughts that you would be b tristin off or of hurting yourself in some way: Not at all Total Score: 7 Interpretation: Mild Depression Intervention Depression Screening Findings: P ositve Follow-Up for Depression: Em otional support education, Management of mental health treatment Suicide Risk Assessment Performed: Additional Evaluation for De pression: Psychiatric interview and evaluation Name of the standardized too l used for adult depression screening:: Patient Health Questionnaire (PHQ-9) Depression Screening HERMANN-7 (2018 Edition) Feeling nervous, anxious, or on edge: Not at all Follow up depression, anxiety, OCD, chronic since last visit reported I been feeling better than last time I was here dad moved to [place] and working on a job and we are moving there when he find us a house and exciting and my job is going well and 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, 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, I feel depression not having and also not as bad as before and not also better if make sense I am in therapy, I stopped for a while with computer log in system issues, I feel not sad or down, I do feel hopeless about some things that come up then go away and I have no control over, I am not anxious or restlss and sometimes regret not stick to schedule I have in head and if I write it down I will be able to more clearly, I want to excise before bed so I do not have a belly like dad and to stay healthy but too tired by bed time and I fall asleep I average 8 hours sleep and appetite good, I been trying not to go to [place] after work and bad for me and expensive, no psychosis no shane, no SI/HI, reported energy is better than usual, and motivation and interest I get self to to go to work and not beg for extra s sleep and I take dog out after work and bed until dinner, and focus been on simple task not complex task, I can wsh trays at work but not type on computer without distracted, tolerating all rx, no s/e and no abnormal involuntary movement reported or noted, sometimes I get mad over simple things and sometimes mad for days. I feel like if not born with all these learning disorder I could have been more than I am but know it is useless ETOH- denies smoking- denies labs- none drugs- denies presently taking LATUDA 60 mg with evenng meal, Sertraline 100 mg daily, Buspar 10 mg twice a day rx hx LATUDA, Sertraline Buspar Not being able to stop or control worryi ng: Several days Worrying too much about different things : Not at all Trouble relaxing: Not at all Being so restless that it is hard to sit still: Not at all Becoming easily annoyed or irritable: Mo re than half the days Feeling afraid as if something awful thea ht happen: More than half the days Total HERMANN-7 Score: 5 Interpretation of Total: (5 to 9) Mild [...]
--- OUTSIDE RECORDS SUMMARY | 2024-06-12 15:15 | XMS_ITS | Referral Summary ---
Author Organization [facility] [address] [place] [address] Phone Care Team Providers Care Chief Informatics Officer Name Role Phone Daniel Woodward MD Primary Care Provider [phone] Allergies Active Allergy Reactions Criticality Noted Date [...] (06/08/2020): Added automatically from request for surgery [id number] Enlarged testicle 06/04/2020 Assessment & Plan (06/04/2020 11:09 AM CDT): Patient noticed enlarged testicle 4 days ago minimal discomfort. Patient is father advised that he will get an ultrasound of his testicles. once results returned I will refer to urology. Bilateral impacted cerumen 02/20/2020 Assessment & Plan (10/23/2020 7:14 PM CDT): Recurrence bilateral cerumen impaction successful removed today. Patient has used eull-yrk-ckpcgyp products this is not sufficient to clear to ear wax. Assessment & Plan (02/20/2020 2:22 PM HEART DOCTOR): Ear wax removed both ears hearing improved immediately. Right acute serous otitis media 02/20/2020 Assessment & Plan (02/20/2020 2:22 PM HEART DOCTOR): Cerumen impaction removed right ear red complained appearance pain consistent with otitis media patient started on Augmentin 875 twice a day 7 days. Anticipate full recovery no further treatment. Preventative health care 05/25/2019 Assessment & Plan (05/25/2019 5:40 PM CDT): 19-year-old gentleman here for preventive health exam is a new patient to me. His previous under care of Dr. Darren Malhotra manager culinary his records have been reviewed. Patient has [...] MCV4P (Menactra) 07/05/2010 Tdap 07/05/2010 Varicella 10/15/2013,12/07/2000 Social History Tobacco Use Types Packs/Day Years [...] on file Legal Sex Male 9:45 AM HEART DOCTOR Gender Identity Not on file Sexual Orientation Not on file Last Filed Vital Signs Vital Sign Reading [...] 10/23/2020 11:10 AM CDT Plan of Treatment Not on file Insurance [facility] Care Teams Chief Informatics Officer Relationship Specialty Start Date End Date Daniel Woodward MD PCP - General Internal Medicine 05/17/19
--- OUTSIDE RECORDS SUMMARY | 2024-06-12 15:22 | XMS_ITS | Patient Health Record ---
Author Organization [facility] [place] Address [address] [place] [address] Care Team Providers Care Vp Securities Name Role Phone Daniel Woodward MD Primary Care Provider Lucita Sandy Unavailable [phone] Madeleine Davis Unavailable [phone] Migration, Provider Unavailable Unavailable Allergies Allergen (clinical drug ingredient) Drug/Non Drug Allergy documented on EMR Reaction Allergy Type Onset Date Status Mold Unknown Allergy 07/03/2023 Active Reason For Referral No Information Medications Medication SIG (Take, Route, Fr equency, [...] Once a day for 90 days Active Immunizations Vaccine Route Administration Date Status Comme nts COVID-19, mRNA, LNP-S, PF, 5 0 mcg/0.5 mL Unknown 01/30/2023 Administered Influenza, unspecified formulation Unknown 12/13/2021 A dministered Novel [id number], preservative free Unknown 01/30/2023 Administered Pfizer Biontech Covid-19 Vac cine 2nd dose Unknown 07/17/2020 Administered Pfizer Biontech Covid-19 Vac cine 2nd dose Unknown 08/07/2020 Administered Pfizer Biontech Covid-19 Vac cine 2nd dose Unknown 03/09/2021 Administered Social History Sex Assigned At : Social History Observation Description Sex Assigned At Male Section Notes: Family struggling financiall y at this time. Father is currently unemployed. Mother is working liquor department manager. 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 Family struggling financiall y at this time. Father is currently unemployed. Mother is working liquor department manager. 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 Family struggling financiall y at this time. Father is currently unemployed. Mother is working liquor department manager. 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 Family struggling financiall y at this time. Father is currently unemployed. Mother is working liquor department manager. Pt receives disability and works at the [employer] during the school year. 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) 4 Active confirmed Problem Obsessive compulsive disorder (072472267) Other obsessive-compu lsive disorder (F42.8) 4 Active confirmed Vital Signs Heart Rate 80 /min 04/18/2024 Blood pressure diastolic 87 mm Hg 04/18/2024 Height-cm 172.72 cm 04/18/2024 Weight-kg 81.01 kg 04/18/2024 Height 68.00 in 04/18/2024 Blood pressure systolic 125 mm Hg 04/18/2024 Weight 178.6 lbs 04/18/2024 BMI 27.15 kg/m2 04/18/2024 Encounters Encounter Location Date Provider Diagnosis [facility] [place] [facility] [address] [facility] [address] [place] [address] 09/12/2023 Madeleine Garcia [facility] [employer] [facility] [address] [facility] [address] [place] [address] 07/03/2023 Madeleine Garcia Generalized anxiety disorder F41.1 ; Other obsessive-compulsive disorder F42.8 ; Asperger's syndrome F84.5 and Major depressive disorder, recurrent, moderate F33.1 [place] [address] [facility] [address] [place] [address] 08/04/2023 Madeleine Garcia [facility] [address] [place] [address] 08/17/2023 Madeleine Garcia Generalized anxiety disorder F41.1 ; Asperger's syndrome F84.5 ; Other obsessive-compulsive disorder F42.8 and Major depressive disorder, recurrent, moderate F33.1 [facility] [address] [facility] [address] [place] [address] 08/30/2023 Madeleine Garcia Generalized anxiety disorder F41.1 ; Asperger's syndrome F84.5 ; Other obsessive-compulsive disorder F42.8 and Major depressive disorder, recurrent, moderate F33.1 [place] [address] [facility] [address] [place] [address] 12/21/2023 Lucita Stewart Major depressive disorder, recurrent, moderate F33.1 ; Generalized anxiety disorder F41.1 ; Asperger's syndrome F84.5 ; Other obsessive-compulsive disorder F42.8 and Other prison (current) drug therapy Z79.899 [place] [address] [facility] [address] [facility] [address] [place] [address] 04/18/2024 Lucita Stewart Major depressive disorder, recurrent, moderate F33.1 ; Generalized anxiety disorder F41.1 ; Asperger's syndrome F84.5 ; Other obsessive-compulsive disorder F42.8 and Other prison (current) drug therapy Z79.899 [facility] [address] [facility] [address] [place] [address] 07/09/2023 Provider Migration [facility] [address] [facility] [address] [facility] [address] [place] [address] 07/21/2023 Provider Migration [address] [place] [address] 07/29/2023 Provider Migration [place] [address] [address] [facility] [address] [facility] [address] [place] [address] 07/30/2023 Provider Migration Assessments Encounter Date Diagnosis (ICD Code) Assessment Notes Treatment Notes Treatment Clinical Notes Section Notes 07/03/2023 Major depressive disorder, recurrent, moderate (ICD-10 - F33.1) 07/03/2023 Generalized anxiety disorder (ICD-10 - F41.1) 07/03/2023 Asperger's syndrome (ICD-10 - F84.5) 07/03/2023 Other obsessive-comp ulsive disorder (ICD-10 - F42.8) 12/21/2023 Major depressive disorder, recurrent, moderate (ICD-10 - F33.1) Depression- Latuda 60 mg with evening meal - eat 350 calories with rx Sertraline 100 mg daily continue therapy plan to move [place] Anxiety- Buspar 10 mg twice a day Asperger's- therapy OCD Sertraline 100 mg daily http_s://DVDPlay/depressi on/the-cognitive- prcegpws-eq-anwwd ssion#treatments http__s://www.nim .nih.gov/health/ topics/mental-hea [facility]-medications http__s://www.nam i.org/About-Menta l-Illness/Treatme nts/Mental-Health -Medications educated on all medications, benefits, side effects [...] effects including loss of libido, increased suicidal thoughts/behavior s in children and young adults, and serotonin [...] mg daily continue therapy plan to move [place] end year Anxiety- Buspar 10 mg twice a day Asperger's- therapy OCD Sertraline 100 mg daily http_s://DVDPlay/depressi on/the-cognitive- qlrtczlt-aa-rpzdj ssion#treatments http__s://www.nim h.nih.gov/health/ topics/mental-hea [facility]-medications http__s://www.nam i.org/About-Menta l-Illness/Treatme nts/Mental-Health -Medications educated on all medications, benefits, side effects [...] effects including loss of libido, increased suicidal thoughts/behavior s in children and young adults, and serotonin [...] neurotoxicity and interactions with prescribed medications. 04/18/2024 Major depressive disorder, recurrent, moderate (ICD-10 - F33.1) Depression- Latuda 60 mg with evening meal - eat 350 calories with rx Sertraline 100 mg daily continue therapy plan to move [place] next year Anxiety- Buspar 10 mg twice a day Asperger's- therapy OCD Sertraline 100 mg daily http_s://psychcen tral.com/depressi on/the-cognitive- ftvhjahh-nm-cgrfr ssion#treatments http__s://www.nim h.nih.gov/health/ topics/mental-hea [facility]-medications http__s://www.nam i.org/About-Menta l-Illness/Treatme nts/Mental-Health -Medications educated on all medications, benefits, side effects [...] effects including loss of libido, increased suicidal thoughts/behavior s in children and young adults, and serotonin [...] potential neurotoxicity and interactions with prescribed medications. 08/30/2023 Generalized anxiety disorder (ICD-10 - F41.1) Copied from [facility] from 10/05/21 History of Present Illness Psychosocial Assessment Presenting Problem: Carlos is a 21 year old male who has a dx of Asperger's. He was diagnosed two years ago. He has tried counseling in the past for OCD, anxiety, and ADD. It is under control. He is a patient of Dr. Norris and takes Latuda and Zoloft. He is employed at [email or web address] but struggling to find motivation to go because it is boring and I am there too long . I get wound tight as a spring. Pt is his own guardian. He is slated to attend an Asperger's group at [facility]. Family Origin (/children ): Mal resides at home with his parents and his sister (high school age). Education: Carlos is a high school graduate from [employer]. Math and science classes were a struggle. He excelled in [place]. Currently considering a trade school as he wants to avoid general ed classes. He is interested becoming a lock fabian or [employer]. College is convoluted. He writes fiction stories as a hobby. 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 My parents are my only support system. Psychiatric Hospitalizations? I have had suicidal thoughts in the past. I tried to choke myself with a bungee cord but I let go. He didn't tell anyone or go to the hospital. Medical Was admitted to the for testicular cancer last year. Has since resolved. No chemo or radiation. Drug/ETOH use/Pattern of use/treatment? None Childhood Family Dynamic: Everything was good at my house. Spirituality: No Other family members with mental illness or substance abuse/addiction issues: Parents have some anxiety and depression issues. Hx of abuse, neglect, PTSD? None Legal issues? None 08/30/2023 Asperger's syndrome (ICD-10 - F84.5) Copied from [facility] from 10/05/21 History of Present Illness Psychosocial Assessment Presenting Problem: Carlos is a 21 year old male who has a dx of Asperger's. He was diagnosed two years ago. He has tried counseling in the past for OCD, anxiety, and ADD. It is under control. He is a patient of Dr. Norris and takes Latuda and Ledy. He is employed at [employer] but struggling to find motivation to go because it is boring and I am there too long . I get wound tight as a spring. Pt is his own guardian. He is slated to attend an Asperger's group at [facility]. Family Origin (/children ): Pt resides at home with his parents and his sister (high school age). Education: Carlos is a high school graduate from [employer]. Math and science classes were a struggle. He excelled in [place]. Currently considering a trade school as he wants to avoid general ed classes. He is interested becoming a lock fabian or HV[employer]. College is convoluted. He writes fiction stories as a hobby. 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 My parents are my only support system. Psychiatric Hospitalizations? I have had suicidal thoughts in the past. I tried to choke myself with a bungee cord but I let go. He didn't tell anyone or go to the hospital. Medical Was admitted to the for testicular cancer last year. Has since resolved. No chemo or radiation. Drug/ETOH use/Pattern of use/treatment? None Childhood Family Dynamic: Everything was good at my house. Spirituality: No Other family members with mental illness or substance abuse/addiction issues: Parents have some anxiety and depression issues. Hx of abuse, neglect, PTSD? None Legal issues? None 08/17/2023 Generalized anxiety disorder (ICD-10 - F41.1) Copied from [facility] from 10/05/21 History of Present Illness Psychosocial Assessment Presenting Problem: Carlos is a 21 year old male who has a dx of Asperger's. He was diagnosed two years ago. He has tried counseling in the past for OCD, anxiety, and ADD. It is under control. He is a patient of Dr. Norris and takes Ramo. He is employed at [employer] but struggling to find motivation to go because it is boring and I am there too long . I get wound tight as a spring. Pt is his own guardian. He is slated to attend an Asperger's group at [facility]. Family Origin (/children ): Pt resides at home with his parents and his sister (high school age). Education: Carlos is a high school graduate from [employer]. Math and science classes were a struggle. He excelled in [place]. Currently considering a trade school as he wants to avoid general ed classes. He is interested becoming a lock fabian or [employer]. College is convoluted. He writes fiction stories as a hobby. 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 My parents are my only support system. Psychiatric Hospitalizations? I have had suicidal thoughts in the past. I tried to choke myself with a bungee cord but I let go. He didn't tell anyone or go to the hospital. Medical Was admitted to the for testicular cancer last year. Has since resolved. No chemo or radiation. Drug/ETOH use/Pattern of use/treatment? None Childhood Family Dynamic: Everything was good at my house. Spirituality: No Other family members with mental illness or substance abuse/addiction issues: Parents have some anxiety and depression issues. Hx of abuse, neglect, PTSD? None Legal issues? None 08/17/2023 Asperger's syndrome (ICD-10 - F84.5) Copied from [facility] from 10/05/21 History of Present Illness Psychosocial Assessment Presenting Problem: Carlos is a 21 year old male who has a dx of Asperger's. He was diagnosed two years ago. He has tried counseling in the past for OCD, anxiety, and ADD. It is under control. He is a patient of Dr. Norris and takes Latuda and Zoloft. He is employed at [employer] but struggling to find motivation to go because it is boring and I am there too long . I get wound tight as a spring. Pt is his own guardian. He is slated to attend an Asperger's group at [facility]. Family Origin (/children ): Pt resides at home with his parents and his sister (high school age). Education: Carlos is a high school graduate from [employer]. Math and science classes were a struggle. He excelled in [place]. Currently considering a trade school as he wants to avoid general ed classes. He is interested becoming a lock fabian or [employer]. College is convoluted. He writes fiction stories as a hobby. 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 My parents are my only support system. Psychiatric Hospitalizations? I have had suicidal thoughts in the past. I tried to choke myself with a bungee cord but I let go. He didn't tell anyone or go to the hospital. Medical Was admitted to the for testicular cancer last year. Has since resolved. No chemo or radiation. Drug/ETOH use/Pattern of use/treatment? None Childhood Family Dynamic: Everything was good at my house. Spirituality: No Other family members with mental illness or substance abuse/addiction issues: Parents have some anxiety and depression issues. Hx of abuse, neglect, PTSD? None Legal issues? None 08/17/2023 Other obsessive-comp ulsive disorder (ICD-10 - F42.8) Copied from [facility] from 10/05/21 History of Present Illness Psychosocial Assessment Presenting Problem: Carlos is a 21 year old male who has a dx of Asperger's. He was diagnosed two years ago. He has tried counseling in the past for OCD, anxiety, and ADD. It is under control. He is a patient of Dr. Norris and takes Latuda and Zoloft. He is employed at [employer] but struggling to find motivation to go because it is boring and I am there too long . I get wound tight as a spring. Pt is his own guardian. He is slated to attend an Asperger's group at [facility]. Family Origin (/children ): Mal resides at home with his parents and his sister (high school age). Education: Carlos is a high school graduate from [employer]. Math and science classes were a struggle. He excelled in [place]. Currently considering a trade school as he wants to avoid general ed classes. He is interested becoming a lock fabian or [employer]. College is convoluted. He writes fiction stories as a hobby. 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 My parents are my only support system. Psychiatric Hospitalizations? I have had suicidal thoughts in the past. I tried to choke myself with a bungee cord but I let go. He didn't tell anyone or go to the hospital. Medical Was admitted to the for testicular cancer last year. Has since resolved. No chemo or radiation. Drug/ETOH use/Pattern of use/treatment? None Childhood Family Dynamic: Everything was good at my house. Spirituality: No Other family members with mental illness or substance abuse/addiction issues: Parents have some anxiety and depression issues. Hx of abuse, neglect, PTSD? None Legal issues? None 08/30/2023 Other obsessive-comp ulsive disorder (ICD-10 - F42.8) Copied from [facility] from 10/05/21 History of Present Illness Psychosocial Assessment Presenting Problem: Carlos is a 21 year old male who has a dx of Asperger's. He was diagnosed two years ago. He has tried counseling in the past for OCD, anxiety, and ADD. It is under control. He is a patient of Dr. Norris and takes Latuda and Zoloft. He is employed at [employer] but struggling to find motivation to go because it is boring and I am there too long . I get wound tight as a spring. Pt is his own guardian. He is slated to attend an Asperger's group at [facility]. Family Origin (/children ): Pt resides at home with his parents and his sister (high school age). Education: Carlos is a high school graduate from [employer]. Math and science classes were a struggle. He excelled in [place]. Currently considering a trade school as he wants to avoid general ed classes. He is interested becoming a lock fabian or [employer]. College is convoluted. He writes fiction stories as a hobby. 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 My parents are my only support system. Psychiatric Hospitalizations? I have had suicidal thoughts in the past. I tried to choke myself with a bungee cord but I let go. He didn't tell anyone or go to the hospital. Medical Was admitted to the for testicular cancer last year. Has since resolved. No chemo or radiation. Drug/ETOH use/Pattern of use/treatment? None Childhood Family Dynamic: Everything was good at my house. Spirituality: No Other family members with mental illness or substance abuse/addiction issues: Parents have some anxiety and depression issues. Hx of abuse, neglect, PTSD? None Legal issues? None 04/18/2024 Generalized anxiety disorder (ICD-10 - F41.1) Depression- Latuda 60 mg with evening meal - eat 350 calories with rx Sertraline 100 mg daily continue therapy plan to move [place] next year Anxiety- Buspar 10 mg twice a day Asperger's- therapy OCD Sertraline 100 mg daily http_s://psychcen tral.com/depressi on/the-cognitive- wmxeopbw-xy-rmxvq ssion#treatments http__s://www.nim .nih.gov/health/ topics/mental-hea [facility]-medications http__s://www.nam i.org/About-Menta l-Illness/Treatme nts/Mental-Health -Medications educated on all medications, benefits, side effects [...] effects including loss of libido, increased suicidal thoughts/behavior s in children and young adults, and serotonin [...] mg daily continue therapy plan to move [facility] Anxiety- Buspar 10 mg twice a day Asperger's- therapy OCD Sertraline 100 mg daily http_s://psychcen tral.com/depressi on/the-cognitive- gycbdbxz-gj-ullmv ssion#treatments http__s://www.nim h.nih.gov/health/ topics/mental-hea [facility]-medications http__s://www.nam i.org/About-Menta l-Illness/Treatme nts/Mental-Health -Medications educated on all medications, benefits, side effects [...] effects including loss of libido, increased suicidal thoughts/behavior s in children and young adults, and serotonin [...] mg daily continue therapy plan to move [place] next year Anxiety- Buspar 10 mg twice a day Asperger's- therapy OCD Sertraline 100 mg daily http_s://psychcen tral.com/depressi on/the-cognitive- nileyjhl-uj-plbrw ssion#treatments http__s://www.nim h.nih.gov/health/ topics/mental-hea lt-medications http__s://www.nam i.org/About-Menta l-Illness/Treatme nts/Mental-Health -Medications educated on all medications, benefits, side effects [...] effects including loss of libido, increased suicidal thoughts/behavior s in children and young adults, and serotonin [...] potential neurotoxicity and interactions with prescribed medications. 08/17/2023 Major depressive disorder, recurrent, moderate (ICD-10 - F33.1) Copied from [facility] from 10/05/21 History of Present Illness Psychosocial Assessment Presenting Problem: Carlos is a 21 year old male who has a dx of Asperger's. He was diagnosed two years ago. He has tried counseling in the past for OCD, anxiety, and ADD. It is under control. He is a patient of Dr. Norris and takes Latuda and Zoloft. He is employed at [employer] but struggling to find motivation to go because it is boring and I am there too long . I get wound tight as a spring. Pt is his own guardian. He is slated to attend an Asperger's group at [facility]. Family Origin (/children ): Pt resides at home with his parents and his sister (high school age). Education: Carlos is a high school graduate from [employer]. Math and science classes were a struggle. He excelled in [place]. Currently considering a trade school as he wants to avoid general ed classes. He is interested becoming a lock fabian or [employer]. College is convoluted. He writes fiction stories as a hobby. 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 My parents are my only support system. Psychiatric Hospitalizations? I have had suicidal thoughts in the past. I tried to choke myself with a bungee cord but I let go. He didn't tell anyone or go to the hospital. Medical Was admitted to the for testicular cancer last year. Has since resolved. No chemo or radiation. Drug/ETOH use/Pattern of use/treatment? None Childhood Family Dynamic: Everything was good at my house. Spirituality: No Other family members with mental illness or substance abuse/addiction issues: Parents have some anxiety and depression issues. Hx of abuse, neglect, PTSD? None Legal issues? None 12/21/2023 Other obsessive-comp ulsive disorder (ICD-10 - F42.8) Depression- Latuda 60 mg with evening meal - eat 350 calories with rx Sertraline 100 mg daily continue therapy plan to move [place] end year Anxiety- Buspar 10 mg twice a day Asperger's- therapy OCD Sertraline 100 mg daily http_s://psychcen tral.com/depressi on/the-cognitive- cbtptvfj-kz-viqub ssion#treatments http__s://www.nim h.nih.gov/health/ topics/mental-hea lt-medications http__s://www.nam i.org/About-Menta l-Illness/Treatme nts/Mental-Health -Medications educated on all medications, benefits, side effects [...] effects including loss of libido, increased suicidal thoughts/behavior s in children and young adults, and serotonin [...] potential neurotoxicity and interactions with prescribed medications. 08/30/2023 Major depressive disorder, recurrent, moderate (ICD-10 - F33.1) The patient reports difficulty with motivation and maintaining a daily routine, which has been disrupted by the introduction of yard work. He expresses feelings of jealousy towards others who can stay on task and practice their skills, such as drawing and writing. The patient has been attempting to build stamina through running, walking, or doing push-ups most days, but struggles to maintain consistency. The patient experiences distress related to the cleanliness and organization of his living environment, particularly the dining room, which holds negative memories and is often cluttered. He expresses a desire to clean his desk and complete his laundry, but faces challenges with sharing household responsibilities with a sibling. 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 He mentions receiving a social security check, but only when he is earning paychecks. The patient's mother's views on global warming and the potential end of humanity contribute to his anxiety and distress. The patient acknowledges the need to improve his hygiene habits, such as showering more regularly, especially after engaging in physical activities like yard work. He has been trying to establish a daily routine, including taking the dog out, making breakfast, setting alarms for activities, practicing drawing, going for a run, showering, making a smoothie, writing, and doing chores. However, he struggles to get back on track when his routine is interrupted. Education provided on Distress Tolerance. Worksheets provided. Support and encouragement provided through active listening. Copied from [employer] from 10/05/21 History of Present Illness Psychosocial Assessment Presenting Problem: Carlos is a 21 year old male who has a dx of Asperger's. He was diagnosed two years ago. He has tried counseling in the past for OCD, anxiety, and ADD. It is under control. He is a patient of Dr. Norris and takes Latuda and Zoloft. He is employed at [email or web address] but struggling to find motivation to go because it is boring and I am there too long . I get wound tight as a spring. Pt is his own guardian. He is slated to attend an Asperger's group at [facility]. Family Origin (/children ): Pt resides at home with his parents and his sister (high school age). Education: Carlos is a high school graduate from [employer]. Math and science classes were a struggle. He excelled in [place]. Currently considering a trade school as he wants to avoid general ed classes. He is interested becoming a lock fabian or HVAC. College is convoluted. He writes fiction stories as a hobby. 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 My parents are my only support system. Psychiatric Hospitalizations? I have had suicidal thoughts in the past. I tried to choke myself with a bungee cord but I let go. He didn't tell anyone or go to the hospital. Medical Was admitted to the for testicular cancer last year. Has since resolved. No chemo or radiation. Drug/ETOH use/Pattern of use/treatment? None Childhood Family Dynamic: Everything was good at my house. Spirituality: No Other family members with mental illness or substance abuse/addiction issues: Parents have some anxiety and depression issues. Hx of abuse, neglect, PTSD? None Legal issues? None 04/18/2024 Other obsessive-comp ulsive disorder (ICD-10 - F42.8) Depression- Latuda 60 mg with evening meal - eat 350 calories with rx Sertraline 100 mg daily continue therapy plan to move [place] next year Anxiety- Buspar 10 mg twice a day Asperger's- therapy OCD Sertraline 100 mg daily http_s://[facility] [employer].com/depressi on/the-cognitive- zhlgibpo-rx-yactk ssion#treatments http__s://www.nim h.nih.gov/health/ topics/mental-hea [facility]-medications http__s://www.nam i.org/About-Menta l-Illness/Treatme nts/Mental-Health -Medications educated on all medications, benefits, side effects [...] effects including loss of libido, increased suicidal thoughts/behavior s in children and young adults, and serotonin [...] and interactions with prescribed medications. 12/21/2023 Other prison (current) drug therapy (ICD-10 - Z79.899) Depression- Latuda 60 mg with evening meal - eat 350 calories with rx Sertraline 100 mg daily continue therapy plan to move [place] end year Anxiety- Buspar 10 mg twice a day Asperger's- therapy OCD Sertraline 100 mg daily http_s://psychcen tral.com/depressi on/the-cognitive- psyoepyv-gp-xnzzn ssion#treatments http__s://www.nim h.nih.gov/health/ topics/mental-hea [facility]-medications http__s://www.nam i.org/About-Menta l-Illness/Treatme nts/Mental-Health -Medications educated on all medications, benefits, side effects [...] effects including loss of libido, increased suicidal thoughts/behavior s in children and young adults, and serotonin [...] and interactions with prescribed medications. 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 (ICD-10 - Z79.899) Depression- Latuda 60 mg with evening meal - eat 350 calories with rx Sertraline 100 mg daily continue therapy plan to move [place] next year Anxiety- Buspar 10 mg twice a day Asperger's- therapy OCD Sertraline 100 mg daily http_s://psychcen [employer].com/depressi on/the-cognitive- wurhebgt-te-aqjfk ssion#treatments http__s://www.[facility].nih.gov/health/ topics/mental-hea [facility]-medications http__s://www.nam i.org/About-Menta l-Illness/Treatme nts/Mental-Health -Medications educated on all medications, benefits, side effects [...] effects including loss of libido, increased suicidal thoughts/behavior s in children and young adults, and serotonin [...] interactions with prescribed medications. Plan Of Treatment Next Appt Details Provider Name:Lucita Stewart , 07/11/2024 02:15:00 PM, [address], [address], [place], [address], Insurance Providers Payer Name Payer Address Payer Phone Subscriber Number Group Number Insured Name Patient Relationship to Insured Coverage Start Date Coverage End Date [employer] [address] [place] [phone] [id number] SILVESTRE YEPEZ Child - Insured has Financial Responsibility Medical (General) History Medical History History ICD Code Problems: Asperger's disorder Generalized anxiety disorder Long-term drug therapy Moderate recurrent major depression Obsessive-compulsive disorder ,
== END 2024-06-12 15:12 | disposition home or self-care (01) ==
PROVIDERS: Emergency Provider Nurse Practitioner Family
DX: J06.9 Acute upper respiratory infection, unspecified (principal)
CPT/HCPCS: 87081; 87880; 99202; G0463